=== PATIENT | female | born 1985 | race Caucasian/White ===

== ENCOUNTER 2017-08-06 08:19 | Inpatient (IN) | payer OTHER ==
[2017-08-06 09:16] VITALS: BMI 32.1
[2017-08-06] MEDS ORDERED: DINOPROSTONE 10 MG VAGINAL SUPPOSITORY VG ONE (09:19)
[2017-08-06 10:33] LABS: BASOPHIL 0.4 % (0-2.0); EOSINOPHIL 1.7 % (0-4.5); MCH 23.2 pg (25.7-33.7); MCHC 31.3 g/dl (32.0-36.0); MEAN PLT VOLUME 7.5 fl (7.5-11.1); NEUTROPHILS 73.2 % (42.8-82.8); PLATELET COUNT 310 K/MM3 (134-434); RDW 15.6 % (11.6-15.6); WHITE BLOOD COUNT 11.3 K/mm3 (4.0-10.0)
[2017-08-06 10:57] LABS: ANION GAP 10 (8-16); CALCIUM 8.7 mg/dL (8.5-10.1); CO2 25 mmol/L (21-32); CREATININE 0.7 mg/dL (0.55-1.02); GLUCOSE,RANDOM 63 mg/dL (74-106)
[2017-08-06 11:31] LABS: INR 1.07 (0.82-1.09); PROTHROMBIN TIME (PATIENT) 11.8 SEC (9.98-11.88)
[2017-08-06 11:34] LABS: ACTIVATED PTT 26.9 SECONDS (26.9-34.4)
[2017-08-06] MEDS ORDERED: BUTORPHANOL TARTRATE 1 MG/ML VIAL IVPB ONE (18:37)
[2017-08-06] MEDS ORDERED: PROMETHAZINE HCL 25 MG/1 ML VIAL IVPUSH ONE (18:37)
--- NOTE | 2017-08-06 18:46 | HP ---
Past Medical History - Primary Care Physician PCP:: Lenora Mclean (Late entry for 1000 am) - Admission History of Present Illness: 31 y/o with SIUP at 39 weeks gestation here for elective scheduled induction of labor. History of X 1. Uncomplicated . No complaints today. +FM, no VB/LOF/Ctx. GBS negative, HIV negative, Rh positive , HepBSag negative. History Source: Patient, Medical Record Limitations to Obtaining History: No Limitations - Past Medical History Cardiovascular: No: HTN, ND Pulmonary: No: Asthma, COPD Gastrointestinal: No: Inflamatory Bowel Disease, Irritable Bowel Disease Hepatobiliary: No: Hepatitis B, Hepatitis C Renal/: No: UTI Reproductive: No: Fibroids, PID ...: 2 ...Para: 1 ...Term: 1 ...: 0 ...Spon : 0 ...Induced : 1 ...Multiple Gestation: 0 ...LMP: 11/08/16 ... Weeks Gestation by Dates: 38.5 ...EDC by Dates: 08/15/17 ...EDC by Sono: 08/13/17 Heme/Onc: No: Anemia, Bleeding Disorder Infectious Disease: No: HIV, MRSA, STD's Psych: No: Anxiety, Bipolar Endocrine: No: Diabetes Mellitus, Hyperthyroidism, Hypothyroidism - Past Surgical History Hx Myomectomy: No Hx Transabdominal Cerclage: No - Smoking History Smoking history: Never smoked Have you smoked in the past 12 months: No - Alcohol/Substance Use Hx Alcohol Use: No History of Substance Use: reports: None - Social History Usual Living Arrangement: Yes: With Spouse ADL: Independent History of Recent Travel: No Home Medications - Allergies Allergies/Adverse Reactions: Allergies Allergy/AdvReac Type Severity Reaction Status Date / Time shellfish derived Allergy Intermediate Verified 08/06/17 09:02 - Home Medications Home Medications: Ambulatory Orders Vits #93/Iron Fum/FA [ Formula Tablet] 1 each PO DAILY Review of Systems - Review of Systems Constitutional: reports: No Symptoms Eyes: reports: No Symptoms HENT: reports: No Symptoms Neck: reports: No Symptoms Cardiovascular: reports: No Symptoms Respiratory: reports: No Symptoms Gastrointestinal: reports: No Symptoms Genitourinary: reports: No Symptoms Breasts: reports: No Symptoms Reported Musculoskeletal: reports: No Symptoms Integumentary: reports: No Symptoms Neurological: reports: No Symptoms Endocrine: reports: No Symptoms Hematology/Lymphatic: reports: No Symptoms Psychiatric: reports: No Symptoms Physical Exam - Maternity Vital Signs: Vital Signs Temperature 97.7 F 08/06/17 18:16 Pulse Rate 76 08/06/17 18:16 Respiratory Rate 20 08/06/17 18:16 Blood Pressure 123/56 08/06/17 18:16 O2 Sat by Pulse Oximetry (%) Constitutional: Yes: Well Nourished, No Distress, Calm Eyes: Yes: Conjunctiva Clear, EOM Intact HENT: Yes: Atraumatic, Normocephalic Neck: Yes: Supple, Trachea Midline Cardiovascular: Yes: Regular Rate and Rhythm Lungs: Clear to auscultation - Abdominal Exam/OB Number of Fetuses: Single Presentation: Vertex Contractions: No Heart Rate (range): 125 Category: I Accelerations: Uniform Decelerations: None - Vaginal Exam/OB Vaginal Bleediing: No Dilatation (cm): 1 Effacement (%): 0 Amniotic Membrane Status: Intact Presentation: Vertex/Position Station: -3 - Physical Exam Extremities: Yes: WNL Edema: No Psychiatric: Yes: Alert, Oriented - Labs Lab Results: CBC, BMP 08/06/17 10:10 08/06/17 10:10 Hemorrhage Risk Assessment - Risk Factors Medium Risk Factors: Yes: None High Risk Factors: Yes: None Risk Score: 1 Risk Level: Medium Risk Problem List - Problems (1) Term Code(s): Z34.80 - ENCOUNTER FOR SUPRVSN OF NORMAL , UNSP TRIMESTER (2) Elective induction of labor planned Code(s): GSL9510 - Assessment/Plan 31 y/o with SIUP at 39 weeks, here for elective induction of labor - AFVSS - FHTS cat 1 - elective IOL - cervidil placed at 10am, to re evaluate at 10pm - may need 2nd cervidil vs. pitocin - intermittent monitoring ok until active labor - analgesia/epidural prn - GBS Negative
[2017-08-06] MEDS ORDERED: DEXTROSE 5%-LACTATED RINGERS 1,000 ML IV SCH (21:00)
--- NOTE | 2017-08-06 21:44 | PN ---
Ante-Partal Exam - Subjective Subjective: Pt with painful contractions - tolerating contractions without analgesia. Vital Signs: Vital Signs Temperature 98.2 F 08/06/17 21:40 Pulse Rate 73 08/06/17 21:40 Respiratory Rate 20 08/06/17 21:40 Blood Pressure 101/60 08/06/17 21:40 O2 Sat by Pulse Oximetry (%) Bleeding: No Headache: No Visual changes: No Right upper quadrant pain: No Pain (scale 1-10): 4 - Contractions Contractions: Yes Regularity: Regular Intensity: Moderate - Exam during Labor Heart Rate: 125 Variability: Moderate Category: I Monitor Accelerations: Present Monitor Decelerations: None Exam: Vaginal Dilatation (cm): 3 Effacement (%): 50 Amniotic Membrane Status: Intact Presentation: Vertex Station: -2 - Intrapartum Hemorrhage Risk Medium Risk Factors: None High Risk Factors: None Risk Score: 0 Risk Level: Low Risk - Assessment/Plan Assessment/Plan: 31 y/o at 39 weeks, elective IOL - AFVSS - FHTS cat 1 - elective IOL, s/p cervidil, removed at this time, cervix now ripe ok to start pitocin - GBS negative
[2017-08-06] MEDS ORDERED: OXYTOCIN 15 UNITS/ LR 250 ML 250 ML IVPB SCH (22:00)
--- NOTE | 2017-08-06 23:41 | PN ---
Ante-Partal Exam - Subjective Subjective: Came to evaluate patient due to bleeding noted by nursing staff. Pt still with painful contractions but tolerating them s/p stadol/phenergan. Pitocin stopped once bleeding noted. Vital Signs: Vital Signs Temperature 98.2 F 08/06/17 21:40 Pulse Rate 78 08/06/17 23:00 Respiratory Rate 20 08/06/17 23:00 Blood Pressure 120/62 08/06/17 23:00 O2 Sat by Pulse Oximetry (%) Bleeding: Yes Bleeding Description: Mild Headache: No Visual changes: No Right upper quadrant pain: No - Contractions Contractions: Yes Regularity: Irregular Intensity: Moderate Monitor Mode: External - Exam during Labor Heart Rate: 130 Variability: Moderate Category: I Monitor Accelerations: Present Monitor Decelerations: None Exam: Vaginal Dilatation (cm): 3 Effacement (%): 70 Amniotic Membrane Status: Intact Presentation: Vertex Station: -2 - Assessment/Plan Assessment/Plan: 31 y/o with SIUP at 39 weeks, elective IOL - FHTS cat 1 - IOL, s/p cervidil, pitocin started. New bleeding noted - consistent with bloody show, cervical exam mildly changed. FHR category 1, do not suspected abruption at this time. Continue with pitocin at this time, increase rate slowly. - GBS negative - continue current care
[2017-08-07] MEDS ORDERED: ELECTROLYTE-148 SOLN 500 ML IV ONE (02:00)
[2017-08-07] MEDS ORDERED: FENTANYL/BUPIVACAINE/NS/PF - PCEA - 50 ML DISP.SYRIN EP SCH (02:15)
[2017-08-07] MEDS ORDERED: ELECTROLYTE-148 SOLN 1,000 ML IV SCH (03:00)
[2017-08-07] MEDS ORDERED: BISACODYL 10 MG SUPP.RECT RC PRN (07:28)
[2017-08-07] MEDS ORDERED: BENZOCAINE 20% 57 GM BOTTLE TP PRN (07:28)
[2017-08-07] MEDS ORDERED: BENZOCAINE 28 GM HEMORRHOIDAL OINTMENT TP PRN (07:28)
[2017-08-07] MEDS ORDERED: METHYLERGONOVINE MALEATE 0.2 MG/1 ML AMP IM PRN (07:28)
[2017-08-07] MEDS ORDERED: WITCH HAZEL 50% (TUCKS) 40 PAD/JAR PAD TP PRN (07:28)
[2017-08-07] MEDS ORDERED: OXYTOCIN 20 UNITS in 0.9% NS 1,000 ML IV SCH (07:30)
--- NOTE | 2017-08-07 07:34 | PN ---
Ante-Partal Exam - Subjective Subjective: Pt with rectal pressure/urge to push. Vital Signs: Vital Signs Temperature 98.8 F 08/07/17 05:53 Pulse Rate 66 08/07/17 06:35 Respiratory Rate 18 08/07/17 06:46 Blood Pressure 118/61 08/07/17 06:35 O2 Sat by Pulse Oximetry (%) 100 08/07/17 06:46 Bleeding: Yes Bleeding Description: Mild Headache: No Visual changes: No Right upper quadrant pain: No - Contractions Contractions: Yes Regularity: Regular Intensity: Mod/Strong Monitor Mode: External - Exam during Labor Heart Rate: 125 Variability: Moderate Category: I Monitor Accelerations: Present Monitor Decelerations: None Exam: Vaginal Dilatation (cm): 9.5 Effacement (%): 100 Presentation: Vertex Station: +1 - Assessment/Plan Assessment/Plan: 31 y/o with SIUP at 39.1 weeks, elective IOL - AFVSS - FHTS cat 1 - elective IOL, s/p cervidil, on pitocin augmentation, pt to begin pushing in approx 15-20 minutes - GBS negative - anticipate
[2017-08-07] MEDS: IBUPROFEN 600 MG TABLET (FP) PO PRN (10:01)
[2017-08-07] MEDS: PRENATAL VITAMINS W/ FOLIC ACID TABLET (FP) PO SCH (11:54)
[2017-08-07] MEDS ORDERED: TUBERCULIN PPD 5 TU/0.1ML SYRINGE (IN PATIENT USE ONLY) ID ONE (12:00)
[2017-08-08] MEDS: IBUPROFEN 600 MG TABLET (FP) PO PRN ×2 (03:00→21:36)
[2017-08-08] MEDS: ACETAMINOPHEN 325 MG TABLET (FP) PO PRN ×2 (03:01→21:37)
[2017-08-08 07:54] LABS: BASOPHIL 0.3 % (0-2.0); EOSINOPHIL 0.8 % (0-4.5); MCH 23.5 pg (25.7-33.7); MCHC 31.7 g/dl (32.0-36.0); MEAN CELL VOLUME 74.2 fl (80-96); NEUTROPHILS 73.8 % (42.8-82.8); PLATELET COUNT 271 K/MM3 (134-434); RDW 15.9 % (11.6-15.6)
[2017-08-08] MEDS: PRENATAL VITAMINS W/ FOLIC ACID TABLET (FP) PO SCH (09:12)
[2017-08-08] MEDS ORDERED: DIPHTH,PERTUSS(ACELL),TET 0.5 ML DISP.SYRIN IM ONE (10:00)
--- NOTE | 2017-08-08 15:26 | PN ---
Delivery - Delivery Vaginal Delivery: No Problems Type of Anesthesia: Epidural Episiotomy/Laceration: 1st degree EBL (cc): 300 Delivery, Single - Stages of Labor Date 1st Stage Initiatied: 08/06/17 Time 1st Stage Initiated: 21:00 Date 2nd Stage Initiated: 08/07/17 Time 2nd Stage Initiated: 07:20 Date of Delivery: 08/07/17 Time of Delivery: 07:47 Date Placenta Delivered: 08/07/17 Time Placenta Delivered: 07:50 - Condition of Aerial Photographer/Rda Present: No Gender: Male Weight: 5 lb 14 oz Total Hours ROM (Hrs/Mins): 0/30 - 1 Minute Total Score: 9 5 Minutes Total Score: 10 - [place] Feeding Plan Initial Plan: Exclusive throughout hospitalization Remarks - Remarks Remarks: Uncomplicated of baby boy from ALLISON position across intact perineum B/L shoulders delivered with ease along with remainder of delayed cord clamping X 1 minute, then cord clamped and cut oropharynx bulb suctioned placenta delivered spontaneously and in tact 1st degree vaginal laceration repaired with 3-0 vicryl suture sponge and needle count correct mom stable baby to well baby nursery
--- NOTE | 2017-08-08 20:34 | PN ---
Post Note - Post Date of Delivery: 08/07/17 Post Day: 1 Vital Signs: Vital Signs - 24 hr 08/07/17 08/08/17 08/08/17 21:00 06:00 08:00 Temperature 97.9 F 98.2 F 98.3 F Pulse Rate 71 69 78 Respiratory 18 18 20 Rate Blood Pressure 103/66 96/48 106/49 Labs: Laboratory Results - last 24 hr 08/08/17 07:24 WBC 14.0 H RBC 3.55 L Hgb 8.4 L D Hct 26.3 L MCV 74.2 L MCH 23.5 L MCHC 31.7 L RDW 15.9 H Plt Count 271 MPV 8.0 Neutrophils % 73.8 Lymphocytes % 20.2 Monocytes % 4.9 Eosinophils % 0.8 Basophils % 0.3 - Subjective Subjective: No Complaints - Objective Afebrile: Yes Breast: Not engorged Abdomen: Soft, Non-tender Uterus: Fundus firm Vagina: Scant lochia Extremities: Non-tender - Assessment/Plan (1) Normal vaginal delivery Assessment: S/P Normal Plan: Routine Care
--- NOTE | 2017-08-08 20:37 | DS ---
Physical Exam-AEROGRAPHER Vital Signs: Vital Signs Temperature 98.3 F 08/08/17 08:00 Pulse Rate 78 08/08/17 08:00 Respiratory Rate 20 08/08/17 08:00 Blood Pressure 106/49 08/08/17 08:00 O2 Sat by Pulse Oximetry (%) 98 08/07/17 09:30 Constitutional: Yes: Well Nourished, No Distress Gastrointestinal: Yes: WNL, Normal Bowel Sounds, Soft ....Post : Yes: Uterus firm, Uterus non-tender Breast(s): Yes: WNL Musculoskeletal: Yes: WNL Extremities: Yes: WNL Edema: No Neurological: Yes: WNL, Alert, Oriented Labs: CBC, BMP 08/08/17 07:24 08/06/17 10:10 Delivery - Delivery Vaginal Delivery: No Problems Type of Anesthesia: Epidural Episiotomy/Laceration: 1st degree EBL (cc): 300 Delivery, Single - Stages of Labor Date 1st Stage Initiatied: 08/06/17 Time 1st Stage Initiated: 21:00 Date 2nd Stage Initiated: 08/07/17 Time 2nd Stage Initiated: 07:20 Date of Delivery: 08/07/17 Time of Delivery: 07:47 Time Placenta Delivered: 07:50 Placenta: Yes: Spontaneous - Condition of Watch Crystal Grinder/Day Care Home Mother Present: No Gender: Male Weight: 5 lb 14 oz Total Hours ROM (Hrs/Mins): 0/30 - 1 Minute Total Score: 9 5 Minutes Total Score: 10 - Feeding Plan Initial Plan: Exclusive throughout hospitalization Discharge Summary Reason For Visit: INDUCTION LABOR Current Active Problems Elective induction of labor planned (Acute) Normal vaginal delivery (Acute) Term (Acute) Procedures: Principal: Normal vaginal delivery Hospital Course: Unremarkable Condition: Good - Instructions Diet, Activity, Other Instructions: Physical activity Resume your normal everyday activity as tolerated no heavy lifting or exercise until seen by your surgeon. You may walk unlimited araceli of and climb stairs. You may resume driving the car when you feel safe and comfortable behind the wheel. No sexual activity as instructed. Wound care If you have a bandage, leave it on, and keep dry for 48-72 hours. After that time discard the outer bandage. If they are tapes on the skin under the out of bandage leave them in place. They will peel off in the next 7 to 10 days. Do Not Peel them off. You may shower the day after surgery. If there are tapes present on the skin, you may shower over them. Diet There are no dietary restrictions. Eat healthy, high-fiber foods. Drink 6 to 8 glasses of liquid each day. This will assist in keeping your bowels are regular. Pain management You may take Tylenol or acetaminophen or Ibuprofen (for example, Motrin, Advil etc.) from my pain prescription medication is ordered should be taken as prescribed for moderate to severe pain. Call MD for any of the following: Severe pain not relieved by medication Fever of 101 or higher Excessive bleeding or drainage on dressing Inability to urinate Referrals: Emilie Oconnor MD [Staff Physician] - Disposition: HOME - Home Medications Comprehensive Discharge Medication List: Ambulatory Orders Vits #93/Iron Fum/FA [ Formula Tablet] 1 each PO DAILY Ibuprofen [Motrin -] 600 mg PO QID PRN #28 tablet 08/08/17
[2017-08-08] MEDS ORDERED: SENNOSIDES/DOCUSATE COMBO (SENNA PLUS) TABLET (UD) PO PRN (22:00)
[2017-08-09] MEDS: PRENATAL VITAMINS W/ FOLIC ACID TABLET (FP) PO SCH (10:00)
[2017-08-09 12:26] VITALS: BP 115/76; PULSE 75; TEMP 98.4
== END 2017-08-09 12:00 | disposition home or self-care (01) | DRG 560 ==
LOC: JLDR 08:19 → J3W 08-07 11:36
PROVIDERS: ADMIT Obstetrics & Gynecology; ATTEND Obstetrics & Gynecology
PROC: 3E0P7GC Introduction of Other Therapeutic Substance into Female Reproductive, Via Natural or Artificial Opening (ICD-10-PCS; 2017-08-06)
PROC: 10E0XZZ Delivery of Products of Conception, External Approach (ICD-10-PCS; principal; 2017-08-07)
PROC: 0W8NXZZ Division of Female Perineum, External Approach (ICD-10-PCS; 2017-08-07)
PROC: 0HQ9XZZ Repair Perineum Skin, External Approach (ICD-10-PCS; 2017-08-07)
DX: O70.0 First degree perineal laceration during delivery (principal); Z3A.39 39 weeks gestation of pregnancy; Z37.0 Single live birth
CPT/HCPCS: 36415; 59409; 80048; 85025; 85610; 85730; 86593; 86850; 86900; 86901; 90715

== ENCOUNTER 2018-12-25 10:51 | Emergency (ER) | payer OTHER ==
[2018-12-25 10:55] VITALS: BMI 39.4
[2018-12-25] MEDS ORDERED: SODIUM CHLORIDE 1,000 ML IV STA (11:23)
[2018-12-25] MEDS ORDERED: ACETAMINOPHEN 1000 MG/100 ML VIAL (NON FORMULARY) IVPB ONE (11:23)
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
[2018-12-25] MEDS ORDERED: ACETAMINOPHEN INJECTION 100 ML IVPB ONE (11:32)
[2018-12-25 14:59] VITALS: BP 127/76; PULSE 88; TEMP 98.8
== END 2018-12-25 15:40 | disposition home or self-care (01) ==
LOC: FER 10:51
PROC: 3E033NZ Introduction of Analgesics, Hypnotics, Sedatives into Peripheral Vein, Percutaneous Approach (ICD-10-PCS; principal; 2018-12-25)
PROC: 3E0337Z Introduction of Electrolytic and Water Balance Substance into Peripheral Vein, Percutaneous Approach (ICD-10-PCS; 2018-12-25)
DX: O46.8X2 Other antepartum hemorrhage, second trimester (principal); Z3A.23 23 weeks gestation of pregnancy; R10.9 Unspecified abdominal pain; Y04.2XXA Assault by strike against or bumped into by another person, initial encounter
CPT/HCPCS: 76801-TC; 99282-25; J0131; J7030

== ENCOUNTER 2019-04-12 03:35 | Inpatient (IN) | payer OTHER | END 2019-04-14 13:00 | disposition home or self-care (01) | LOC: JLDR 03:35 → J3W 14:51 ==

== ENCOUNTER 2019-07-14 04:41 | Day surgery (SDC) | payer OTHER ==
[2019-07-13 12:17] VITALS: BMI 37.4
--- NOTE | 2019-07-14 08:11 | HP ---
History & Physical Update - History History: No Change - Physical Physical: No Change - Assessment Assessment: No Change - Plan Plan: No Change (agree with H&p from 07/12, for laparoscopic b/l salpingectomy)
[2019-07-14] MEDS ORDERED: SUCCINYLCHOLINE CHLORIDE 200 MG/10 ML SYRINGE ONE (08:18)
[2019-07-14] MEDS ORDERED: MIDAZOLAM HCL 2 MG/2 ML SINGLE DOSE VIAL ONE (08:18)
[2019-07-14] MEDS ORDERED: PROPOFOL 20 ML ONE (08:18)
[2019-07-14] MEDS ORDERED: ACETAMINOPHEN 325 MG TABLET (FP) PO PRN (08:43)
[2019-07-14] MEDS ORDERED: LACTATED RINGERS SOLUTION 1,000 ML IV SCH ×2 (08:45→10:15)
[2019-07-14] MEDS ORDERED: DEXAMETHASONE SOD PHOSPHATE 4 MG/1 ML VIAL ONE (09:25)
[2019-07-14] MEDS ORDERED: GLYCOPYRROLATE 0.2 MG/1 ML VIAL ONE (09:25)
[2019-07-14] MEDS ORDERED: KETOROLAC TROMETHAMINE 30 MG/1 ML VIAL ONE (09:25)
[2019-07-14] MEDS ORDERED: VECURONIUM BROMIDE 10 MG VIAL ONE (09:25)
[2019-07-14] MEDS ORDERED: NEOSTIGMINE METHYLSULFATE 0.5 MG/ML - 10 ML MDV ONE (09:26)
[2019-07-14] MEDS ORDERED: PHENYLEPHRINE HCL 10 MG/1 ML SINGLE DOSE VIAL ONE (09:26)
[2019-07-14] MEDS ORDERED: BUPIVACAINE HCL/PF 0.5% (5MG/ML) 10 ML VIAL IJ ONE ×2 (09:40)
[2019-07-14] MEDS ORDERED: SODIUM CHLORIDE 0.9% P/F 10 ML VIAL IJ ONE (09:44)
[2019-07-14] MEDS ORDERED: ACETAMINOPHEN INJECTION 100 ML IVPB ONE (10:10)
[2019-07-14] MEDS ORDERED: oxyCODONE HCL 5 MG TABLET PO PRN (10:13)
[2019-07-14] MEDS ORDERED: ONDANSETRON 4 MG/2 ML VIAL IVPUSH PRN (10:13)
[2019-07-14] MEDS ORDERED: ACETAMINOPHEN 1000 MG/100 ML VIAL (NON FORMULARY) IVPB ONE (10:14)
--- NOTE | 2019-07-14 10:14 | OP ---
Operative Note - Note: Operative Date: 07/14/19 Pre-Operative Diagnosis: multiparity, desires permanent sterilization Operation: laparoscopic bilateral salpingectomy Findings: normal b/l tubes and ovaries normal uterus Post-Operative Diagnosis: Same as Pre-op Surgeon: Lenora Mclean Colored Liquid Plastic Applier: Kush Gimenez Anesthesiologist/ESCROW REPRESENTATIVE: Donis Wahl Anesthesia: General Specimens Removed: b/l fallopian tubes Estimated Blood Loss (mls): 5 Operative Report Dictated: Yes
--- NOTE | 2019-07-14 10:32 | SURG ---
Surgery Five Roll Refiner Batch Mixer Note Five Roll Refiner Batch Mixer: Kush Gimenez PA-C Date of Service: 07/14/19 Diagnosis: elective sterilization Procedure: Laproscopic bilateral salpingectomy I was present for the entirety of the operative procedure. For further detail, please refer to operative report. Visit type - Case Type Case Type: Scheduled - Emergency Emergency Visit: No - New patient This patient is new to me today: Yes Date on this admission: 07/14/19 - Critical Care Critical Care patient: No
[2019-07-14 12:18] VITALS: TEMP 97.4
--- NOTE | 2019-07-14 12:42 | OP ---
DATE OF OPERATION: 07/14/2019 PREOPERATIVE DIAGNOSIS: Multiparity, desire for permanent sterilization. POSTOPERATIVE DIAGNOSIS: Multiparity, desire for permanent sterilization. PROCEDURE: Laparoscopic bilateral salpingectomy. SURGEON: Lenora Mclean MD ANESTHESIA: General, by Ankur Wahl MD COVER OPERATOR: DEBI Good ESTIMATED BLOOD LOSS: 5 mL. SPECIMENS REMOVED: Bilateral fallopian tubes. FINDINGS: Normal bilateral tubes and ovaries. COMPLICATIONS: None. COUNTS: Sponge, needle, instrument count correct. DISPOSITION: Stable to PACU. BRIEF HISTORY: The patient is a 33-year-old, para 3, female, who has been seen in the office with desire for permanent sterilization. She was consented for a laparoscopic bilateral salpingectomy. The consents upon admission were reconfirmed on July 14, 2019. She was then taken back to the operating room, given general anesthesia, and placed the dorsal lithotomy position. A Mcmahan catheter was placed under sterile conditions. She was prepped and draped in the usual sterile fashion and a hard timeout was performed. A 5-mm skin incision was created inferior to the umbilicus in a prior incision site. A Veress needle was placed intraabdominally. The abdomen was insufflated with CO2 gas. A 5-mm trocar was placed under direct visualization using Opti trocar. After confirmation of intraperitoneal placement, 2 bilateral 5-mm lower quadrant ports were placed, one on the left, one on the right, under direct visualization. The left fallopian tube was identified, elevated and traced to its fimbriated end. It was dissected off its attachment to the ovary, mesosalpinx, and uterus, using LigaSure device and removed through the trocar device and sent to Pathology for permanent evaluation. Excellent hemostasis was achieved. The same was repeated with the right fallopian tube. Excellent hemostasis was noted at the surgical site. Inspection of the intraabdominal contents revealed no other pathology or adhesions from prior surgery. At this point, the abdomen was desufflated, the trocars were removed. The skin was reapproximated with 4-0 Biosyn and skin glue. The patient was awoken from anesthesia, recovering in stable condition in the PACU after procedure. Sponge, needle, instrument count was reported to be correct. LENORA MCLEAN DO /[id number]
[2019-07-14] MEDS ORDERED: diphenhydrAMINE HCL 25 MG CAPSULE (FP) PO ONE ×2 (12:55→12:59)
[2019-07-14 14:40] VITALS: BP 112/67; PULSE 81
--- NOTE | 2019-07-16 20:22 | PATH ---
Surgical Pathology Report Patient Name: ALEJANDRA LISA Med. Rec. #: [id number] /Age/Gender: 1985 (Age: 33) / F Account: [id number] Location: [facility] SURGICAL Taken: 07/14/2019 Received: 07/14/2019 Reported: 07/16/2019 Physicians: Lenora Mclean M.D. Specimen(s) Received A: LEFT FALLOPIAN TUBE B: RIGHT FALLOPIAN TUBE Clinical History Multiparity, desired sterilization Final Diagnosis A. LEFT FALLOPIAN TUBE, RESECTION: COMPLETE CROSS SECTION OF THE FALLOPIAN TUBE LUMEN IDENTIFIED. B. RIGHT FALLOPIAN TUBE, RESECTION: COMPLETE CROSS SECTION OF THE FALLOPIAN TUBE LUMEN IDENTIFIED. Electronically Signed Debbie Ball M.D. Gross Description A. Received in formalin labeled "left fallopian tube," is a 4.3 cm in length fimbriated fallopian tube. The outer surface is stringer-quiles and smooth. Sectioning reveals an unremarkable lumen. Notch Machine Operator sections are submitted in 2 cassettes as follows: 1-fimbria; 2-cross sections of fallopian tube. B. Received in formalin labeled "right fallopian tube," is a 5.5 cm in length fimbriated fallopian tube. The outer surface is hastings purple and smooth. Sectioning reveals an unremarkable lumen. Notch Machine Operator sections are submitted in 2 cassettes as follows: 1-fimbria; 2-cross sections of fallopian tube. 07/15/2019 [facility]07/15/2019
== END 2019-07-14 14:30 | disposition home or self-care (01) ==
LOC: JASU-SURG 04:41
PROVIDERS: ATTEND Obstetrics & Gynecology
PROC: 0U574ZZ Destruction of Bilateral Fallopian Tubes, Percutaneous Endoscopic Approach (ICD-10-PCS; principal; 2019-07-14 09:00)
DX: Z30.2 Encounter for sterilization (principal)
CPT/HCPCS: 88302-TC; 94760; J0131